=== PATIENT | male | born 1975 | race American Indian/Alaskan Native ===

== ENCOUNTER 2016-07-02 19:59 | Emergency (ER) | payer SELFPAY ==
[2016-07-03 02:03] VITALS: BP 138/95
[2016-07-03] MEDS ORDERED: PERCOCET 5/325 ONE (04:55)
[2016-07-03] MEDS ORDERED: VALIUM ONE (05:09)
[2016-07-03] MEDS ORDERED: TORADOL ONE (05:09)
== END 2016-07-03 05:45 | disposition home or self-care (01) ==
LOC: ED 19:59
DX: M25.531 Pain in right wrist (principal); M25.511 Pain in right shoulder; Z53.21 Procedure and treatment not carried out due to patient leaving prior to being seen by health care provider
CPT/HCPCS: 29125; J1885